=== PATIENT | female | born 1935 | race African-American/Black ===

== ENCOUNTER 2016-12-03 19:53 | Emergency (ER) | payer SELFPAY ==
[~2016-12-03] VITALS: Ht 160 cm; Wt 68.0 kg
[2016-12-03 21:51] LABS: BASOPHILS % 0.9 % (0.0-2.0); HEMATOCRIT. 35.9 % (36.0-48.0); LYMPHOCYTES % 18.4 % (20.0-50.0); MEAN CORPUSCULAR HEMOGLOBIN 28.7 pg (28.0-32.0); MEAN CORPUSCULAR VOLUME 85.5 fL (81.0-99.0); MEAN PLATELET VOLUME 7.8 fl (7.4-10.4); MONOCYTES % 12.4 % (2.0-8.0); NEUTROPHILS % 67.3 % (40.0-76.0); PLATELET 174 x1000/uL (130-400); RED BLOOD CELL COUNT 4.19 mill/uL (4.2-5.4); RED CELL DISTRIBUTION WIDTH 14.6 % (11.6-14.6)
[2016-12-03 21:52] LABS: CHLORIDE 105 mEq/L (98-107)
[2016-12-03 21:57] LABS: CARBON DIOXIDE 26 mEq/L (21-32)
[2016-12-03 22:01] LABS: TROPONIN I < 0.02 ng/mL (0.00-0.04)
[2016-12-03 22:05] VITALS: BP 135/71
== END 2016-12-03 22:23 | disposition home or self-care (01) ==
LOC: ER 19:56
DX: E11.649 Type 2 diabetes mellitus with hypoglycemia without coma (principal); I10 Essential (primary) hypertension; E78.00 Pure hypercholesterolemia, unspecified; Z96.649 Presence of unspecified artificial hip joint
CPT/HCPCS: 36415; 80048; 82962; 84484; 85025; 93005; 99285; Z7610